=== PATIENT | male | born 1985 | race Asian ===

== ENCOUNTER 2016-06-07 16:31 | Emergency (ER) | payer OTHER ==
[~2016-06-07] VITALS: Ht 177.8 cm; Wt 94.5 kg
[2016-06-07] MEDS ORDERED: PARO20TA24 PO (16:50)
[2016-06-07] MEDS ORDERED: CYCLOBENZAPRINE HCL 10 MG TABLET PO ONE (17:45)
[2016-06-07] MEDS ORDERED: KETOROLAC TROMETHAMINE 60 MG/2 ML VIAL IM ONE (17:45)
[2016-06-07] MEDS ORDERED: HYDROCODONE/ACETAMINOPHEN 5-325 MG TABLET PO ONE (17:45)
[2016-06-07 18:07] VITALS: BP 131/82
== END 2016-06-07 18:24 | disposition home or self-care (01) ==
LOC: EMS 16:32
DX: M54.5 Low back pain (principal)
CPT/HCPCS: 96372; 99283; J1885

== ENCOUNTER 2017-03-10 04:29 | Emergency (ER) | payer OTHER ==
[~2017-03-10] VITALS: Ht 177.8 cm; Wt 100.0 kg
[~2017-03-10 04:29] MED LIST: PARO20TA24 PO
[2017-03-10] MEDS ORDERED: KETOROLAC TROMETHAMINE 30 MG/ML VIAL IM ONE (06:45)
[2017-03-10] MEDS ORDERED: HYDROCODONE/ACETAMINOPHEN 5-325 MG TABLET PO ONE (06:45)
[2017-03-10 08:21] VITALS: BP 138/82
== END 2017-03-10 08:26 | disposition home or self-care (01) ==
LOC: EMS 04:30
DX: S39.012A Strain of muscle, fascia and tendon of lower back, initial encounter (principal); X58.XXXA Exposure to other specified factors, initial encounter; Y93.89 Activity, other specified; Y92.89 Other specified places as the place of occurrence of the external cause; Y99.8 Other external cause status
CPT/HCPCS: 96372; 99283; J1885